=== PATIENT | male | born 1990 | race African-American/Black ===

== ENCOUNTER 2019-02-04 23:50 | Inpatient (IN) ==
[2019-02-05] MEDS ORDERED: 0.9 % Sodium Chloride 1,000 ML IVC ONE ×2 (01:54→05:47)
[2019-02-05] MEDS ORDERED: Isovue-370 500 ML BOTTLE IVP ONE (01:55)
--- NOTE | 2019-02-05 02:00 | Emergency Department Note ---
Disposition Clinical Impression: Left leg cellulitis Disposition: Admitted As Inpatient Condition: Good Time of Disposition: 05:50 Extremity Problem HPI - General Chief complaint: ED Skin/Abscess/Foreign Body Stated complaint: spider bite , infection Time Seen by Provider: 02/05/19 00:14 Source: patient, EMS Limitations: no limitations Nursing Notes Reviewed: Yes Vital Signs Reviewed: Yes - History of Present Illness HPI Narrative: 28-year-old male with reported h/o IVDU c/o worsening "spider bite" to his left lower extremity. He states that he has been in the ED 3 times. Most recent was earlier in the week, he describes compliance with his doxycycline. He presents tonight with worsening pain, and redness. He does describe some drainage and discharge. Pt reports some mild nausea. Patient does mention history of IV drug user, denies any recent use, SI, fevers, chills, weakness Pain Scale: 2 - Related Data Home Medications Medication Instructions Recorded Confirmed Buprenorphine HCl [Subutex] 8 mg SL DAILY 02/05/19 02/05/19 Bupropion HCl [Wellbutrin Xl] 300 mg PO HS 02/05/19 02/05/19 Doxycycline 100 mg PO BID 02/05/19 02/05/19 Ibuprofen [Motrin] 600 mg PO Q6HR PRN 02/05/19 02/05/19 Allergies Allergy/AdvReac Type Severity Reaction Status Date / Time Bee Pollen Allergy Anaphylaxis Verified 02/05/19 00:02 tramadol [From Ultram] Allergy Hives Verified 02/05/19 00:02 green peppers Allergy Hives Uncoded 02/05/19 00:02 All systems ED: reviewed and negative except as stated. Review of Systems: As Per HPI Constitutional: Reports: as per HPI Eyes: Denies: eye discharge ENT ED: Denies: throat pain Cardiovascular: Denies: chest pain, palpitations Respiratory: Denies: dyspnea Gastrointestinal: Reports: as per HPI. Denies: abdominal pain Musculoskeletal: Reports: as per HPI Integumentary: Reports: as per HPI. Denies: rash Neurological: Reports: as per HPI Psychiatric: Denies: depression, suicidal thoughts Endocrine: Denies: fatigue Hematological/Lymphatic: Denies: lymphadenopathy Past Medical History - Past Medical History Medical history: Reports: seizures Surgical history: Reports: non-contributory, other Psychiatric history: Reports: anxiety, depression, PTSD, prior suicide attempt, previous psychiatric hospitalization - Social History Smoking Status: Current every day smoker Smokeless Tobacco Status: Yes Alcohol use: Reports: occasionally Drug use: Reports: opiates, marijuana, IV Drug Use Physical Exam - General Limitations: no limitations General appearance: alert, in no apparent distress - Head Head exam: normocephalic - Eye Eye exam: Present: EOMI - ENT ENT exam: mucous membranes moist - Neck Neck exam: Present: full ROM - Chest Chest inspection: Present: symmetric chest wall rise - Respiratory Respiratory exam: Absent: respiratory distress - Cardiovascular Cardiovascular exam: Present: regular rate, normal rhythm - Abdominal Exam Abdominal exam: Present: soft, Non-Tender - Extremities Exam Extremities exam: Present: full ROM, normal capillary refill - Expanded Lower Extremity Exam Knee exam: Present: normal inspection, full ROM. Absent: tenderness Lower leg exam: Present: swelling (left ), erythema (left) Ankle exam: Present: swelling, erythema Foot/toe exam: Present: swelling Neurovascular/Tendon exam: Absent: pulse deficit, sensory deficit Gait: observed and normal - Back Exam Back exam: Present: full ROM - Neurological Exam Neurological exam: Present: alert - Psychiatric Psychiatric exam: Present: normal affect, normal mood - Skin Skin exam: Present: warm, dry, intact, normal color. Absent: rash, cyanosis, diaphoresis Course Course Narrative: 28-year-old male complains of worsening "spider bite" to his left lower extremity. He states that he has been in the ED 3 times. Did review her EMR, he did have a previous visit. Is currently taking doxycycline. He presents tonight with worsening pain, and redness. Patient is known to be an IV drug user, and he denies any recent issues. Examination noted erythema along the medial and posterior aspect of his left lower extremity. No involvement of the knee. There is some open areas approximately 1 cm, active draining. No fluctuance mild induration. Good distal pulses. Vitals within normal limits. Plan for admission for failing outpatient antibiotics. We will plan for cultures, blood work, fluids, antibiotics. Discussed with attending Dr. Cat who also had face time with patient and agreed with workup and disposition. - Reevaluation(s) Reevaluation #1: PT discussed with Dr. Cat who also had facetime with patient and agreed with admission. I have ordered fluids, blood cultures, wound culture, and baseline lab work. We will anticipate a CT scan of his left lower extremity, pending his renal function. I anticipate patient will need to be admitted, for failing outpatient therapy. Time: 01:59 Reevaluation #2: Patient discussed with and accepted by hospitalist Dr. Hawkins Time: 05:49 Vital Signs Temperature 97.7 F 02/05/19 00:03 Pulse Rate 87 02/05/19 00:03 Respiratory Rate 20 02/05/19 00:03 Blood Pressure 147/83 02/05/19 00:03 O2 Sat by Pulse Oximetry 97 02/05/19 00:03 Temperature 97.7 F 02/05/19 00:03 Pulse Rate 68 02/05/19 06:17 Respiratory Rate 12 02/05/19 06:17 Blood Pressure 121/79 02/05/19 06:17 O2 Sat by Pulse Oximetry 100 02/05/19 06:17 Oxygen Delivery Oxygen Delivery Room Air Extremity Problem, Nontraumati - MDM Narrative Medical decision making narrative: Please note, patient was seen during EMR downtime. I had seen patient prior to this started EMR downtime injuring. Please see paper charting for additional details. Patient is a 28-year-old male with known history of IV drug use on Suboxone therapy. . He is recently diagnosed with cellulitis to his left lower extremity.Most recently he was seen in this department approximately 4 days ago. He was seen, there was a bedside ultrasound that showed no evidence of any drainable abscess. Apparently he was also seen at urgent care and received a prescription for doxycycline. He had recommendations to continue his doxycycline. He presented today with worsening. He describes compliance with his doxycycline, and has been taking it for at least 4 days. His vitals here are within normal limits. He did not meet surge criteria. He does not look toxic. Workup tonight shows no elevation of white blood cell count. Slight elevation in CRP and ESR. No elevation of lactic acid. CT shows cellulitis with no evidence of abscess, or cellulitis, necrotizing fasciitis, or myositis. His pain was managed here with Toradol and acetaminophen. He was given fluids and IV antibiotics here. Patient was discussed with attending Dr. Cat who agreed with admission and also placed on patient. Patient was discussed with and accepted by the hospitalist staff. Laboratory Tests 02/05/19 02/05/19 01:54 01:56 WBC 9.9 RBC 4.56 Hgb 14.1 Hct 42.5 MCV 93.2 MCH 30.9 MCHC 33.2 RDW 13.0 Plt Count 370 MPV 9.7 Immature Gran % 0.3 Seg Neutrophils % 71.7 Lymphocytes % 16.4 Monocytes % 7.6 Eosinophils % 3.7 Basophils % 0.3 Neutrophils # 7.1 Lymphocytes # 1.6 Monocytes # 0.8 Eosinophils # 0.4 Basophils # 0.0 Immature Plt Fraction 3.0 ESR 60 H Creatine kinase 151 CRP 63.39 ESR 60 Sodium 136. Potassium 3.6. Chloride 100. Glucose 91 BUN 20 Lactic acid 0.[address] 02/05/19 04:25 IMPRESSION: 1. Fluid throughout the subcutaneous tissues of the left leg likely due to cellulitis given the clinical history. Edema could appear similar. 2. No findings of osteomyelitis, necrotizing fasciitis, abscess, or myositis. D/ / Manpreet Childs MD / Manpreet Childs MD Interpreting Provider: Manpreet Childs MD - Lab Data Lab results reviewed: Yes I reviewed the patient's lab results. Result diagrams: 02/05/19 01:54 Lab Results 02/05/19 02/05/19 Range/Units 01:54 01:56 WBC 9.9 (4.3-11.1) K/mcL RBC 4.56 (4.19-5.50) M/mcL Hgb 14.1 (12.9-16.9) g/dL Hct 42.5 (37.5-50.1) % MCV 93.2 (83.0-100.0) fL MCH 30.9 (28.0-33.3) pg MCHC 33.2 (31.6-35.5) g/dL RDW 13.0 (11.5-14.5) % Plt Count 370 (140-400) K/mcL MPV 9.7 (9.4-12.4) fL Immature Gran % 0.3 (0-4) % Seg Neutrophils % 71.7 % Lymphocytes % 16.4 % Monocytes % 7.6 % Eosinophils % 3.7 % Basophils % 0.3 % Neutrophils # 7.1 (1.6-8.9) K/mcL Lymphocytes # 1.6 (0.6-4.6) K/mcL Monocytes # 0.8 (0.0-1.3) K/mcL Eosinophils # 0.4 (0.0-0.6) K/mcL Basophils # 0.0 (0.0-0.2) K/mcL Immature Plt Fraction 3.0 (1.1-6.1) % ESR 60 H (0-10) mm/hr - Radiology Data Radiology results reviewed: Yes I reviewed the patient's radiology results.
[2019-02-05] MEDS ORDERED: Ketorolac 15 MG/ML VIAL ONE (02:31)
[2019-02-05] MEDS ORDERED: Vancomycin 1,000 MG VIAL ONE ×2 (03:56→04:02)
[2019-02-05] MEDS ORDERED: 0.9 % Sodium Chloride 250 ML ONE ×2 (03:57→04:01)
[2019-02-05] MEDS ORDERED: Ketorolac 15 MG/ML VIAL IVP ONE (05:47)
[2019-02-05] MEDS ORDERED: Piperacillin/Tazobactam 3.375 GM VIAL ONE (05:54)
[2019-02-05] MEDS ORDERED: 0.9 % Sodium Chloride Mini Bag 100 ML ONE (05:56)
[2019-02-05 06:09] LABS: Basophils % 0.3 %; Eosinophils # 0.4 K/mcL (0.0-0.6); Eosinophils % 3.7 %; Hematocrit 42.5 % (37.5-50.1); Hemoglobin 14.1 g/dL (12.9-16.9); Immature Granulocytes % 0.3 % (0-4); Lymphocytes # 1.6 K/mcL (0.6-4.6); Lymphocytes % 16.4 %; Mean Corpuscular HGB Conc 33.2 g/dL (31.6-35.5); Mean Corpuscular Hemoglobin 30.9 pg (28.0-33.3); Mean Corpuscular Volume 93.2 fL (83.0-100.0); Mean Platelet Volume 9.7 fL (9.4-12.4); Monocytes # 0.8 K/mcL (0.0-1.3); Monocytes % 7.6 %; Neutrophils # 7.1 K/mcL (1.6-8.9); Platelet Count 370 K/mcL (140-400); Red Blood Count 4.56 M/mcL (4.19-5.50); Segmented Neutrophils % 71.7 %; White Blood Count 9.9 K/mcL (4.3-11.1)
--- NOTE | 2019-02-05 06:25 | Emergency Department Note ---
Disposition Clinical Impression: Left leg cellulitis Disposition: Admitted As Inpatient Condition: Good Time of Disposition: 05:50 General Adult HPI - General Chief complaint: ED Skin/Abscess/Foreign Body Stated complaint: spider bite , infection Time Seen by Provider: 02/05/19 00:14 Source: patient, EMS Limitations: no limitations Nursing Notes Reviewed: Yes Vital Signs Reviewed: Yes - History of Present Illness Pain Scale: 8 - Related Data Previous Rx's Medication Instructions Recorded Sulfamethoxazole/Trimeth DS 1 each PO BID #20 tablet 11/16/17 [Bactrim DS] Naloxone [Narcan] 4 mg NS AD #2 sprays 01/20/19 Allergies Allergy/AdvReac Type Severity Reaction Status Date / Time Bee Pollen Allergy Anaphylaxis Verified 02/05/19 00:02 tramadol [From Ultram] Allergy Hives Verified 02/05/19 00:02 green peppers Allergy Hives Uncoded 02/05/19 00:02 Past Medical History - Past Medical History Medical history: Reports: seizures Surgical history: Reports: non-contributory, other Psychiatric history: Reports: anxiety, depression, PTSD, prior suicide attempt, previous psychiatric hospitalization - Social History Smoking Status: Current every day smoker Smokeless Tobacco Status: Yes Alcohol use: Reports: occasionally Drug use: Reports: opiates, marijuana, IV Drug Use Physical Exam - General Limitations: no limitations General appearance: alert Course Vital Signs Temperature 97.7 F 02/05/19 00:03 Pulse Rate 87 02/05/19 00:03 Respiratory Rate 20 02/05/19 00:03 Blood Pressure 147/83 02/05/19 00:03 O2 Sat by Pulse Oximetry 97 02/05/19 00:03 Temperature 97.7 F 02/05/19 00:03 Pulse Rate 68 02/05/19 06:17 Respiratory Rate 12 02/05/19 06:17 Blood Pressure 121/79 02/05/19 06:17 O2 Sat by Pulse Oximetry 100 02/05/19 06:17 Oxygen Delivery Oxygen Delivery Room Air Medical Decision Making - Lab Data Lab results reviewed: Yes I reviewed the patient's lab results. Result diagrams: 02/05/19 01:54 Lab Results 02/05/19 02/05/19 Range/Units 01:54 01:56 WBC 9.9 (4.3-11.1) K/mcL RBC 4.56 (4.19-5.50) M/mcL Hgb 14.1 (12.9-16.9) g/dL Hct 42.5 (37.5-50.1) % MCV 93.2 (83.0-100.0) fL MCH 30.9 (28.0-33.3) pg MCHC 33.2 (31.6-35.5) g/dL RDW 13.0 (11.5-14.5) % Plt Count 370 (140-400) K/mcL MPV 9.7 (9.4-12.4) fL Immature Gran % 0.3 (0-4) % Seg Neutrophils % 71.7 % Lymphocytes % 16.4 % Monocytes % 7.6 % Eosinophils % 3.7 % Basophils % 0.3 % Neutrophils # 7.1 (1.6-8.9) K/mcL Lymphocytes # 1.6 (0.6-4.6) K/mcL Monocytes # 0.8 (0.0-1.3) K/mcL Eosinophils # 0.4 (0.0-0.6) K/mcL Basophils # 0.0 (0.0-0.2) K/mcL Immature Plt Fraction 3.0 (1.1-6.1) % ESR 60 H (0-10) mm/hr - Radiology Data Radiology results reviewed: Yes I reviewed the patient's radiology results. Lower Extremity CT 02/05/19 04:25 IMPRESSION: 1. Fluid throughout the subcutaneous tissues of the left leg likely due to cellulitis given the clinical history. Edema could appear similar. 2. No findings of osteomyelitis, necrotizing fasciitis, abscess, or myositis. D/ / Manpreet Childs MD / Manpreet Childs MD Interpreting Provider: Manpreet Childs MD Critical Care Time Critical Care Time: No Attestation Statement - Attestation Attestation: I, Sukhdeep Cat MD, personally evaluated this patient and discussed their management with the midlevel provicer, PAC/WEB SIZER. I reviewed the midlevel provider's note and agree with the documented findings, medical decision making, and plan of care. 28-year-old male presented to the emergency department with a complaint of pain and swelling and redness of the left lower leg. He states it started about a week ago with a pimple which he squeezed and then it got infected. He has been taking antibiotics for the last several days but states it seems to be getting steadily worse. No fever. On examination patient is a well-developed well-nourished male in no acute distress. He is alert and oriented 3. There is no diaphoresis. Breath sounds are clear and equal bilaterally. Heart regular rate and rhythm. Abdomen soft and nontender with normal bowel sounds. There is diffuse swelling and erythema and tenderness and induration of the left lower leg. There is a small open wound on the posterior medial aspect of the mid left lower leg with a small amount of purulent drainage. Neurovascular function intact distally. Labs reviewed. CT of the left lower extremity shows cellulitis. The hospitalist, Dr. Hawkins, was consulted and accepted admission of the patient.
[2019-02-05] MEDS ORDERED: Ibuprofen 600 MG TABLET PO PRN (07:15)
[2019-02-05] MEDS ORDERED: Naloxone 0.4 MG/ML INJ IVP PRN (07:18)
[2019-02-05] MEDS ORDERED: MOM Conc 10 ML UD.LIQ PO PRN (07:23)
[2019-02-05] MEDS ORDERED: Ondansetron ODT 4 MG TAB.RAPDIS SL PRN (07:23)
[2019-02-05] MEDS ORDERED: Mag Hydrox/Al Hydrox/Simeth 30 ML UDC PO PRN (07:23)
[2019-02-05] MEDS ORDERED: Acetaminophen 325 MG TABLET PO PRN (07:23)
[2019-02-05 07:58] LABS: BUN/Creatinine Ratio 24 (6-26); Blood Urea Nitrogen 19 mg/dL (6-20); Carbon Dioxide 30 mEq/L (23-29); Chloride 103 mEq/L (98-107); Glucose 72 mg/dL (70-105); Osmolality,Calculated 289 (280-300); Potassium 3.3 mEq/L (3.5-5.1); Sodium 139 mEq/L (136-145); eGFR For African Americans > 60 (> 60); eGFR For Non-African Americans > 60 (> 60)
--- NOTE | 2019-02-05 08:58 | Internal Med History&Physical ---
Date of Encounter: 02/05/19 Time of Encounter: 08:47 Internal Medicine - H&P: HPI Chief complaint: "spider bite" Admitted From: Emergency Dept Plans for Post Hospital Care: Home History of present illness: Mr. Salmon is a 28 year old male with hx of opiate abuse presented to ED with complaints of pain, redness and swelling of L leg. Found to have cellulitis and placed in observation. Mr Salmon stated that last weekend (Thursday) he not an area of redness and which he attributed to a spider bite. It progressed and he was seen in ED on Thursday and started on PO Doxycycline. Despite this the area continued to worsen and become more red and swollen. No fever or chills though feels malaise. Some nausea. Seen in ED and CT shows cellulitis. Currently his only complaint is some pain in the area and hunger. Past Med Surg Social Fam HX - Past Medical History Medical history: seizures Additional medical history: IVDU Psychiatric history: anxiety, depression, PTSD, prior suicide attempt, previous psychiatric hospitalization - Past Surgical History Surgical History: non-contributory, other Additional surgical history: gangrene left foot - Social History Smoking Status: Current every day smoker Packs per day: 1 Smokeless Tobacco Status: Yes Alcohol use: occasionally Drug use: opiates, marijuana, IV Drug Use - Family History Mother Hx Family Cardiac Disorders: Yes (HTN) Hx Family Endocrine Disorder: Yes (DM) Internal Medicine - H&P: Meds Buprenorphine HCl/Naloxone HCl [Buprenorphin-Naloxon 8-2 mg Sl] 2 tab PO DAILY 02/05/19 [History] Bupropion HCl [Wellbutrin Xl] 300 mg PO QAM 02/05/19 [History] Buspirone HCl [Buspar] 10 mg PO HS 02/05/19 [History] Doxycycline Hyclate [Vibramycin] 100 mg PO BID 02/05/19 [History] Ibuprofen [Motrin] 600 mg PO TID PRN 02/05/19 [History] Nicotine Patch [Nicoderm] 21 mg TD DAILY 02/05/19 [History] 3 Allergy/AdvReac Type Severity Reaction Status Date / Time Bee Pollen Allergy Anaphylaxis Verified 02/05/19 14:27 tramadol [From Ultram] Allergy Hives Verified 02/05/19 14:27 green peppers Allergy Hives Uncoded 02/05/19 14:27 All Systems PM: A 10-system review of systems was performed and is negative for pertinent findings except as documented above in the HPI. - Constitutional Constitutional: malaise, no chills, no fever(s) - EENT Eyes: no diplopia, no loss of vision Ears: no decreased hearing Nose, mouth and throat: dry mouth, no sinus pain - Cardiovascular Cardiovascular ROS IM: no chest pain, no dyspnea, no dyspnea on exertion, no palpitations - Respiratory Respiratory: no cough, no hemoptysis, no dyspnea on exertion - Gastrointestinal Gastrointestinal: nausea, no abdominal pain, no diarrhea, no vomiting - Genitourinary Genitourinary ROS male: no dysuria, no urinary frequency - Musculoskeletal Musculoskeletal ROS IM: no arthralgias, no tingling - Integumentary Integumentary IM: erythema, sores, no jaundice - Neurological Neurological ROS: convulsions, no confusion, no tingling - Psychiatric Psychiatric: no suicidal ideation - Endocrine Endocrine IM: no excessive sweating - Hematologic/Lymphatic Hematologic/Lymphatic: no easy bleeding - Allergic/Immunologic Allergic/Immunologic: no itchy eyes - Constitutional Vitals: Temp Pulse Resp BP Pulse Ox 97.3 F L 62 16 145/69 100 02/05/19 07:36 02/05/19 07:36 02/05/19 07:36 02/05/19 07:36 02/05/19 07:36 General appearance: Present: A&O X 3, answers questions appropriately Exam: See below - Head Head exam: Present: atraumatic, normocephalic - Eye Eye exam: Present: EOMI, conjuntiva pink - ENT ENT exam: Present: mucous membranes dry - Neck Neck exam general surgery: Present: supple. Absent: nuchal rigidity - Respiratory Respiratory exam: Present: CTAB. Absent: rales, rhonchi, wheezes - Cardiovascular Cardiovascular exam: Present: RRR. Absent: systolic murmur, tachycardia - GI/Abdominal GI/Abdominal exam: Present: soft. Absent: tenderness - Extremities Exam Extremities exam: Present: warm Additional comments: LLE - erythema and swelling noted below knee. Medial part of calf with open area with induration. Small areas near ankle as well. Pulses palpable. - Neurological Exam Neurological exam: Present: alert, oriented X3, no focal deficits - Psychiatric Psychiatric exam: Present: flat affect - Skin Skin exam: Present: dry, erythema, warm Internal Med - H&P Results - Labs CBC & Chem 7: 02/05/19 01:54 02/05/19 07:24 Labs: Short CBC 02/05/19 Range/Units 01:54 WBC 9.9 (4.3-11.1) K/mcL Hgb 14.1 (12.9-16.9) g/dL Hct 42.5 (37.5-50.1) % Plt Count 370 (140-400) K/mcL Neutrophils # 7.1 (1.6-8.9) K/mcL BMP 02/05/19 07:24 Sodium 139 Potassium 3.3 L Chloride 103 Carbon Dioxide 30 H BUN 19 Creatinine 0.79 Glucose 72 Calcium 9.0 - Impressions ITS Impressions Lower Extremity CT 02/05/19 04:25 IMPRESSION: 1. Fluid throughout the subcutaneous tissues of the left leg likely due to cellulitis given the clinical history. Edema could appear similar. 2. No findings of osteomyelitis, necrotizing fasciitis, abscess, or myositis. D/ / Manpreet Childs MD / Manpreet Childs MD Interpreting Provider: Manpreet Childs MD - Assessment and Plan (1) Left leg cellulitis Current Visit: Yes Status: Acute Assessment and plan: Pt presented to ED with LLE cellulitis - recently on PO doxy as outpatient with continued symptoms. Admit to med surg. IV abx ordered - Zosyn and Vanc Blood cx pending CT shows only cellulitis. Monitor for worsening symptoms or evidence of fluid collection. (2) Polysubstance (including opioids) dependence w/o physiol dependence Current Visit: No Status: Chronic Assessment and plan: Continue home Subutex (3) Depression Current Visit: No Status: Chronic Assessment and plan: Continue home meds Qualifiers: Depression Type: unspecified Qualified Code(s): F32.9 - Major depressive disorder, single episode, unspecified (4) Tobacco abuse Current Visit: Yes Status: Chronic Assessment and plan: cessation counselling - Time Spent With Patient Total time spent is greater than 50% in coordination of care (as documented) at patient's floor/unit and/or counseling patient:
[2019-02-05] MEDS ORDERED: *HR* Buprenorphine HCl 8 MG TAB.SUBL SL SCH (09:00)
[2019-02-05] MEDS: Piperacillin/Tazobactam 3.375 GM in 0.9 % Sodium Chloride Mini Bag 100 ML IVPB SCH ×2 (14:37→21:37)
[2019-02-05] MEDS: Nicotine 21 MG PATCH.TD24 TD SCH (15:18)
[2019-02-05] MEDS: hydrOXYzine pamoate 25 MG CAPSULE PO PRN (15:42)
[2019-02-05] MEDS: BuPROPion XL (24 HR) 150 MG TABLET PO SCH (21:37)
--- NOTE | 2019-02-06 01:39 | Event Note ---
Date of Encounter: 02/05/19 Time of Encounter: 21:50 Alerted by pts. nurse TORY Paige that the pt. was admitted for two spider bites on LLE. Hx of IV drug abuse. Patient is currently on suboxone. No urine tox screen done previously, so stat urine tox screen ordered. Patient not cooperating w/providing urine sample. Patient states he takes his suboxone BID. Called Pharmacy to verify, however we are unable to verify at this time. According to Pharmacy, patient has Rx that has not been picked up so dosing and frequency information are not available to view at this time. Suboxone will be once daily for now until we can verify. Patient reported to nurse that the Tylenol was not relieving his pain and he wanted stronger pain medications. Nurse instructed patient that he cannot have opioids while on suboxone. Patient stated he won't take the suboxone and instead wants pain medications. Patient told the nurse if he doesn't get something stronger he's leaving AMA. Nurse reported the patient fell asleep and she would alert me when he woke up so I could come see the pt. Alerted at 01:14 that the pt. was awake and had pulled his IV out. Went to see the pt. who was pacing in the room and agitated. I introduced myself and asked why he had pulled out his IV. Patient became more agitated and stated that it came out when he used the restroom. I asked the pt. why he wanted stronger pain medications when he was taking suboxone. I asked the pt. if anyone had explained to him that opioids are not to be taken while taking suboxone. The pt. became very agitated at this point and stated he would leave. I informed the patient that no one was holding him here and he was free to leave AMA but this was against my advice d/t his current condition and need for broad- spectrum abx. Patient stated he wanted another CODING AND REIMBURSEMENT SPECIALIST to take care of him. I informed the pt. that I was the only CODING AND REIMBURSEMENT SPECIALIST on nights and I was covering all units. Patient stated he did not want another IV. I informed the patient he would not be receiving any opioid pain medications since he was on suboxone. Patient stated he was leaving. Nurse instructed to print out AMA paperwork for the pt. to sign. Charge nurse instructed to call security if patient's agitation continued. Patient informed nurse he did not have a ride until morning and was now staying. Nurse instructed to continue monitoring the patient very closely and alert me immediately of any adverse or behavioral changes.
[2019-02-06 01:55] LABS: Hematocrit 38.5 % (37.5-50.1); Hemoglobin 12.6 g/dL (12.9-16.9); Mean Corpuscular HGB Conc 32.7 g/dL (31.6-35.5); Mean Corpuscular Hemoglobin 30.4 pg (28.0-33.3); Mean Platelet Volume 9.7 fL (9.4-12.4); Platelet Count 320 K/mcL (140-400); Red Blood Count 4.14 M/mcL (4.19-5.50); Red Cell Distribution Width 12.9 % (11.5-14.5); White Blood Count 6.3 K/mcL (4.3-11.1)
[2019-02-06 02:40] LABS: BUN/Creatinine Ratio 19 (6-26); Blood Urea Nitrogen 15 mg/dL (6-20); Calcium 8.7 mg/dL (8.6-10.3); Carbon Dioxide 28 mEq/L (23-29); Chloride 107 mEq/L (98-107); Glucose 90 mg/dL (70-105); Magnesium 1.8 mg/dL (1.6-2.6); Osmolality,Calculated 286 (280-300); Potassium 4.2 mEq/L (3.5-5.1); Sodium 138 mEq/L (136-145); eGFR For African Americans > 60 (> 60); eGFR For Non-African Americans > 60 (> 60)
[2019-02-06 04:09] LABS: Acinetobacter baumannii by PCR Not Detected (Not Detect); Candida albicans by PCR Not Detected (Not Detect); Candida glabrata by PCR Not Detected (Not Detect); Candida krusei by PCR Not Detected (Not Detect); Candida parapsilosis by PCR Not Detected (Not Detect); Candida tropicalis by PCR Not Detected (Not Detect); Enterobacter cloacae Cmplx PCR Not Detected (Not Detect); Enterobacteriaceae by PCR Not Detected (Not Detect); Enterococcus by PCR Not Detected (Not Detect); Escherichia coli by PCR Not Detected (Not Detect); Klebsiella oxytoca by PCR Not Detected (Not Detect); Klebsiella pneumoniae by PCR Not Detected (Not Detect); Proteus by PCR Not Detected (Not Detect); Pseudomonas aeruginosa by PCR Not Detected (Not Detect); Serratia marcescens by PCR Not Detected (Not Detect); Staphylococcus aureus by PCR Not Detected (Not Detect); Staphylococcus by PCR DETECTED (Not Detect); Streptococcus agalactiae(B)PCR Not Detected (Not Detect); Streptococcus by PCR Not Detected (Not Detect); Streptococcus pneumoniae PCR Not Detected (Not Detect); Streptococcus pyogenes (A) PCR Not Detected (Not Detect); blaKPC Carbapenem-Resist Gene Not Detected (Not Detect); mecA Methicillin-Resist Gene Not Detected (Not Detect); vanA/B Vancomycin-Resist Genes Not Detected (Not Detect)
[2019-02-06] MEDS: Piperacillin/Tazobactam 3.375 GM in 0.9 % Sodium Chloride Mini Bag 100 ML IVPB SCH ×3 (05:29→22:08)
[2019-02-06] MEDS ORDERED: *HR* Enoxaparin 30 MG/0.3 ML SYRINGE SQ SCH (06:00)
[2019-02-06 06:01] LABS: Amphetamine Screen,Urine Negative ng/mL (Cutoff=1000); Barbiturate Screen,Urine Negative ng/mL (Cutoff=200)
[2019-02-06 06:02] LABS: Benzodiazepines Screen,Urine Negative ng/mL (Cutoff=300); Cannabinoid Screen,Urine Positive ng/mL (Cutoff = 50); Cocaine Screen,Urine Negative ng/mL (Cutoff= 300); Opiate Screen,Urine Negative ng/mL (Cutoff=300)
[2019-02-06 06:03] LABS: Phencyclidine Screen,Urine Negative ng/mL (Cutoff=25)
[2019-02-06] MEDS ORDERED: *HR* Buprenorphine HCl 8 MG TAB.SUBL SL SCH (06:15)
[2019-02-06] MEDS: Nicotine 21 MG PATCH.TD24 TD SCH (08:29)
[2019-02-06] MEDS: Ketorolac 30 MG/ML VIAL IVP PRN ×2 (08:36→14:10)
[2019-02-06] MEDS ORDERED: NALOXONE PO SCH (09:00)
[2019-02-06] MEDS ORDERED: BUPRENORPHINE HCL PO SCH (09:00)
[2019-02-06] MEDS ORDERED: *HR* LORazepam 1 MG TABLET PO PRN (12:29)
--- NOTE | 2019-02-06 12:36 | Internal Med Progress Note ---
Hospitalist Progress Note - Encounter Date of Encounter: 02/06/19 Time of Encounter: 12:25 - Subjective Interval History: Mr Salmon is currently hospitalized for LLE cellulitis. He remains moderate to high risk due to potential for worsening clinical status. Mr Salmon is very upset at this time. He wants to go outside or down to cafeteria with his family. He feels he has the right to leave the floor if he wants and he would even let the IV come out and be replaced. He is very distressed about the overall situation. He feels that if he needs pain meds he should have the Suboxone held and other meds given. He said he is on different psych meds than we have ordered and was able to list them for me. He feels very anxious and his PTSD is becoming a problem. No fever or chills. Leg is improving overall. We spoke for a while and I explained out reasoning for not going off the floor. I agree that he could have his IV out and go with his family to the lounge around the corner. He cannot be doing this repetitively. If there is any suggestion of illicit substance use or he leaves the floor it will be a call to security. - Exam Vitals: Temp Pulse Resp BP Pulse Ox 98.4 F 77 14 126/89 95 02/06/19 11:41 02/06/19 11:41 02/06/19 11:41 02/06/19 11:41 02/06/19 11:41 Exam: General: Alert and oriented. Comfortable at this time. Skin: Normal color, no rash, H: Normocephalic. EENT: EOMI, Mucus membranes moist. . Cardiovascular: Normal S1 & S2, no murmurs Pulse regular. Lungs: Normal breath sounds, no wheezes or crackles. Abdomen: Soft, non-tender,Normal bowel sounds. Extremities: No deformity, no edema no joint swelling or clubbing. Area on medial L calf is less red. Still some induration and discomfort. Neurological: Normal cognition and motor skills. Pulses: radial pulses normal +2. Rest of the physical exam is non contributory - Assessment and Plan (1) Left leg cellulitis Current Visit: Yes Status: Acute Assessment and Plan: Pt presented to ED with LLE cellulitis - recently on PO doxy as outpatient with continued symptoms. Has had some improvement with IV abx - less red and painful. Will continue IV meds overnight and reassess tomorrow - I am concerned he may still develop an abscess there If stable anticipate d/c tomorrow. (2) Polysubstance (including opioids) dependence w/o physiol dependence Current Visit: No Status: Chronic Assessment and Plan: Subutex (3) Depression Current Visit: No Status: Chronic Assessment and Plan: Continue home meds (4) Tobacco abuse Current Visit: Yes Status: Chronic Assessment and Plan: cessation counselling - Time Spent with Patient Total time spent is greater than 50% in coordination of care (as documented) at patient's floor/unit and/or counseling patient: Internal Medicine: Result - Labs CBC & Chem 7: 02/06/19 01:43 02/06/19 01:43 Labs: Short CBC 02/06/19 Range/Units 01:43 WBC 6.3 (4.3-11.1) K/mcL Hgb 12.6 L D (12.9-16.9) g/dL Hct 38.5 (37.5-50.1) % Plt Count 320 (140-400) K/mcL BMP 02/06/19 01:43 Sodium 138 Potassium 4.2 D Chloride 107 Carbon Dioxide 28 BUN 15 Creatinine 0.80 Glucose 90 Calcium 8.7 Consult Discharge Plan - Plan Referrals: NONE,PCP [Primary Care Provider] - (3) Depression Qualifiers: Depression Type: unspecified Qualified Code(s): F32.9 - Major depressive disorder, single episode, unspecified
[2019-02-06] MEDS ORDERED: Mirtazapine 15 MG TABLET PO SCH (21:00)
[2019-02-06] MEDS: BuPROPion XL (24 HR) 150 MG TABLET PO SCH (22:07)
[2019-02-06] MEDS: OLANZapine 5 MG TAB.RAPDIS PO SCH (22:08)
[2019-02-07] MEDS: Piperacillin/Tazobactam 3.375 GM in 0.9 % Sodium Chloride Mini Bag 100 ML IVPB SCH ×3 (05:40→22:24)
[2019-02-07] MEDS: *HR* Enoxaparin 40 MG/0.4 ML SYRINGE SQ SCH (05:40)
[2019-02-07] MEDS: Nicotine 21 MG PATCH.TD24 TD SCH (08:55)
[2019-02-07] MEDS: OLANZapine 5 MG TAB.RAPDIS PO SCH (08:55)
[2019-02-07 09:49] LABS: Hematocrit 37.1 % (37.5-50.1); Hemoglobin 12.3 g/dL (12.9-16.9); Mean Corpuscular HGB Conc 33.2 g/dL (31.6-35.5); Mean Corpuscular Hemoglobin 30.8 pg (28.0-33.3); Mean Platelet Volume 9.4 fL (9.4-12.4); Platelet Count 320 K/mcL (140-400); Red Blood Count 3.99 M/mcL (4.19-5.50); Red Cell Distribution Width 12.7 % (11.5-14.5)
--- NOTE | 2019-02-07 10:04 | Discharge Summary ---
Orders not resulted at time of discharge: Pending orders 02/05/19 02:46 Culture,Blood [BC] Stat 02/05/19 04:05 Culture,Wound,with Gram Stain [RM] Stat 02/06/19 08:25 Culture,Blood [BC] Routine Date of Encounter: 02/07/19 Time of Encounter: 10:04 Hospital course: Mr. Salmon is a 28 year old male - Time Spent with Patient Total time spent providing and/or coordinating discharge services: - Discharge Medications Prescriptions: No Action Bupropion HCl [Wellbutrin Xl] 300 mg PO QAM Ibuprofen [Motrin] 600 mg PO TID PRN PRN Reason: Pain Buspirone HCl [Buspar] 10 mg PO HS Doxycycline Hyclate [Vibramycin] 100 mg PO BID Nicotine Patch [Nicoderm] 21 mg TD DAILY Buprenorphine HCl/Naloxone HCl [Buprenorphin-Naloxon 8-2 mg Sl] 2 tab PO DAILY Home Medications: Buprenorphine HCl/Naloxone HCl [Buprenorphin-Naloxon 8-2 mg Sl] 2 tab PO DAILY 02/05/19 [History] Bupropion HCl [Wellbutrin Xl] 300 mg PO QAM 02/05/19 [History] Buspirone HCl [Buspar] 10 mg PO HS 02/05/19 [History] Doxycycline Hyclate [Vibramycin] 100 mg PO BID 02/05/19 [History] Ibuprofen [Motrin] 600 mg PO TID PRN 02/05/19 [History] Nicotine Patch [Nicoderm] 21 mg TD DAILY 02/05/19 [History] Allergies/Adverse Reactions: Allergy/AdvReac Type Severity Reaction Status Date / Time Bee Pollen Allergy Anaphylaxis Verified 02/05/19 14:27 tramadol [From Ultram] Allergy Hives Verified 02/05/19 14:27 green peppers Allergy Hives Uncoded 02/05/19 14:27 Date of admission: 02/05/19 05:58 Primary care physician: PCP NONE Consults: 02/05/19 07:03 Consult to Nutrition [CONS] Routine Comment: Consulting Provider: NUTRITION Reason for Dietary Consult: MST Score - Constitutional Vitals: Temp Pulse Resp BP Pulse Ox 97.7 F 68 14 106/64 97 02/07/19 04:02 02/07/19 04:02 02/07/19 04:02 02/07/19 04:02 02/07/19 04:02 General appearance: Present: A&O X 3, answers questions appropriately - Patient Status Condition: Good - Discharge Instructions Follow Up With: NONE,PCP [Primary Care Provider] -
[2019-02-07 10:18] LABS: BUN/Creatinine Ratio 17 (6-26); Blood Urea Nitrogen 14 mg/dL (6-20); Calcium 8.9 mg/dL (8.6-10.3); Carbon Dioxide 32 mEq/L (23-29); Chloride 106 mEq/L (98-107); Glucose 105 mg/dL (70-105); Osmolality,Calculated 293 (280-300); Potassium 3.9 mEq/L (3.5-5.1); Sodium 141 mEq/L (136-145); eGFR For African Americans > 60 (> 60); eGFR For Non-African Americans > 60 (> 60)
[2019-02-07] MEDS ORDERED: Aminoglycoside Consult 1 EACH MC ONE (11:15)
[2019-02-07] MEDS: *HR* Buprenorphine HCl 8 MG TAB.SUBL SL SCH ×2 (11:26→20:19)
[2019-02-07] MEDS ORDERED: Ketorolac 30 MG/ML VIAL IVP PRN (11:32)
--- NOTE | 2019-02-07 12:42 | Internal Med Progress Note ---
<Gaudencio Villagomez S - Last Filed: 02/07/19 12:38> Hospitalist Progress Note - Encounter Date of Encounter: 02/07/19 Time of Encounter: 12:39 - Subjective Interval History: Mr. Salmon is 28-year-old male with history of IV drug use currently on Suboxone, as well as significant psych history who was admitted to her service for IV antibiotics after failed outpatient by mouth antibiotics for lower extremity ulcers and cellulitis. He reports no complaints at this time, reports no problems overnight. He reports that the pain in his leg is significantly better. Denies hallucinations, suicidal ideation, chest pain, shortness of breath, dizziness, headache, blurry vision, double vision, trouble speaking or swallowing, nausea, vomiting, diarrhea, constipation, black stool, bloody stool, numbness/weakness/tingling anywhere. - Exam Vitals: Temp Pulse Resp BP Pulse Ox 97.6 F 70 16 114/57 98 02/07/19 10:45 02/07/19 10:45 02/07/19 10:45 02/07/19 10:45 02/07/19 10:45 Exam: Gen: Awake but somnolent, no acute distress, well-nourished, Head: Normocephalic, atraumatic Eyes: EOMI, no scleral icterus ENT: Mucous membranes moist dry, CV: S1-S2 present, regular at a rate of approximately 60, no murmurs rubs or gallops Pulm: CTAB, not tachypneic, no respiratory distress, no increased work of breathing Abd: Soft, nontender to palpation, nondistended, no rebound or guarding. EXT: Grossly intact motor strength in all 4 extremities, no lower extremity edema, no distal cyanosis or pallor, posteromedial L lower extremity has some induration surrounding a small circular ulcerating wound. Skin: Warm, dry, intact. Numerous small round scars on the legs and arms, groupings of small linear scars present on L forearm Neuro: Cranial nerves II-XII grossly intact, no focal nurologic deficits Psych: normal mood and affect, Answers questions with intact judgement, appropriate insight, and linear thought Wound: approx 8mm, uniform, round ulceration without purulent drainage. some serous-appearing fluid present at base of conical-shaped depression. basee of pink granulation tissue. no eschar or undermining present. - Assessment and Plan (1) Left leg cellulitis Current Visit: Yes Status: Acute Assessment and Plan: L LE wound improving Pt w/o fevers, chills, any other systemic signs Blood cultures show non-staph gram(+) cocci * Continue IV abx overnight * D/C tomorrow pending culture sensitivities * Toradol for pain management (2) Polysubstance (including opioids) dependence w/o physiol dependence Current Visit: No Status: Chronic Assessment and Plan: Patient is taking Suboxone, UDS positive for buprenorphine and THC * IV Toradol for pain management * Hold all narcotics DVT Prophylaxis: SQH - Summary of Assessment and Plan Summary of Assessment and Plan: * IV Abx overnight * Culture sensitivities pending * Toradol for pain * Hold narcotics - Time Spent with Patient Total time spent is greater than 50% in coordination of care (as documented) at patient's floor/unit and/or counseling patient: Internal Medicine: Result - Labs CBC & Chem 7: 02/07/19 09:27 02/07/19 09:27 Labs: Short CBC 02/07/19 Range/Units 09:27 WBC 4.0 L (4.3-11.1) K/mcL Hgb 12.3 L (12.9-16.9) g/dL Hct 37.1 L (37.5-50.1) % Plt Count 320 (140-400) K/mcL BMP 02/07/19 09:27 Sodium 141 Potassium 3.9 Chloride 106 Carbon Dioxide 32 H BUN 14 Creatinine 0.83 Glucose 105 Calcium 8.9 Consult Discharge Plan - Plan Referrals: NONE,PCP [Primary Care Provider] - <Jarod Velarde - Last Filed: 02/07/19 14:09> Hospitalist Progress Note - Encounter Date of Encounter: 02/07/19 - Exam Vitals: Temp Pulse Resp BP Pulse Ox 97.6 F 70 16 114/57 98 02/07/19 10:45 02/07/19 10:45 02/07/19 10:45 02/07/19 10:45 02/07/19 10:45 - Assessment and Plan (1) Left leg cellulitis Current Visit: Yes Status: Acute (2) Polysubstance (including opioids) dependence w/o physiol dependence Current Visit: No Status: Chronic (3) Depression Current Visit: No Status: Chronic (4) Tobacco abuse Current Visit: Yes Status: Chronic - Time Spent with Patient Total time spent is greater than 50% in coordination of care (as documented) at patient's floor/unit and/or counseling patient: Internal Medicine: Result - Labs CBC & Chem 7: 02/07/19 09:27 02/07/19 09:27 Labs: Short CBC 02/07/19 Range/Units 09:27 WBC 4.0 L (4.3-11.1) K/mcL Hgb 12.3 L (12.9-16.9) g/dL Hct 37.1 L (37.5-50.1) % Plt Count 320 (140-400) K/mcL BMP 02/07/19 09:27 Sodium 141 Potassium 3.9 Chloride 106 Carbon Dioxide 32 H BUN 14 Creatinine 0.83 Glucose 105 Calcium 8.9 - Attending Attestation I examined this patient and my medical decision-making was reviewed with the Resident Physician on 02/07/19. I agree with the documented findings, disposi tion and treatment plan as described except to the extent set forth below. Mr Salmon is currently admitted for acute cellulitis LLE. He remains moderate to high risk due to potential for worsening clinical status. Mr Salmon is doing OK. Less pain and swelling today. No fever or chills. No CP or SOB. Exam: Alert. Comfortable. NC. Mucus membranes dry. Neck supple. Heart not tachy. No wheeze. Abd soft. Leg slowly improving. Minimal induration around open area on leg which is improving. No rash. Moves all extremities. Cx Blood: Staph species. Repeat pending. Wound cx: Group A strep. Staph species. Plan continue IV abx and await further cx. Further diagnoses and plan as above. <Jarod Velarde - Last Filed: 02/07/19 14:09> (3) Depression Qualifiers: Depression Type: unspecified Qualified Code(s): F32.9 - Major depressive disorder, single episode, unspecified
[2019-02-07] MEDS: BuPROPion XL (24 HR) 150 MG TABLET PO SCH (20:19)
[2019-02-08] MEDS: *HR* Enoxaparin 40 MG/0.4 ML SYRINGE SQ SCH (05:28)
[2019-02-08] MEDS: Piperacillin/Tazobactam 3.375 GM in 0.9 % Sodium Chloride Mini Bag 100 ML IVPB SCH (05:45)
[2019-02-08 07:38] VITALS: BP 124/76
[2019-02-08] MEDS: *HR* Buprenorphine HCl 8 MG TAB.SUBL SL SCH (08:47)
[2019-02-08] MEDS: Nicotine 21 MG PATCH.TD24 TD SCH (08:47)
[2019-02-08] MEDS: hydrOXYzine pamoate 25 MG CAPSULE PO PRN (08:49)
--- NOTE | 2019-02-08 09:02 | Discharge Summary ---
- NOTES TO OUTPATIENT PROVIDER Notes to Outpatient Provider: Pt admitted with cellulitis of LLE. Blood cx with contaminant. Wound improved with treatment. Discharged on PO abx. Orders not resulted at time of discharge: Pending orders 02/05/19 02:25 Culture,Blood [BC] Stat 02/06/19 08:25 Culture,Blood [BC] Routine Date of Encounter: 02/08/19 Time of Encounter: 09:02 - Discharge Diagnosis (1) Left leg cellulitis Priority: Primary Status: Acute (2) Polysubstance (including opioids) dependence w/o physiol dependence Priority: Secondary Status: Chronic (3) Depression Priority: Secondary Status: Chronic Qualifiers: Depression Type: unspecified Qualified Code(s): F32.9 - Major depressive disorder, single episode, unspecified (4) Tobacco abuse Priority: Secondary Status: Chronic Hospital course: Mr. Salmon is a 28 year old male with hx opiate abuse recently diagnosed with cellulitis. Despite abx he worsened and was placed in hospital. Mr Salmon was admitted to med surg. He was started on IV abx. He had slow improvement in his leg. Initial blood cx had 1 of 2 positive for staph. Wound cx with MSSA and group A strep. Ultimately blood cx with staph hominis. Repeat cx negative. Today he is afebrile and feels better. Leg with no erythema and minimal drainage. He will be discharged home on PO abx with outpatient follow up. Discharge discussed with: patient Time spent discussing smoking cessation with patient: 3 to 10 minutes - Time Spent with Patient Total time spent providing and/or coordinating discharge services: 34min - Discharge Medications Prescriptions: New Amoxicillin/Clavulanate [Augmentin] 875 mg PO BIDWM #11 tablet hydrOXYzine pamoate [Vistaril] 25 mg PO TID PRN #30 capsule PRN Reason: Anxiety Continued Bupropion HCl [Wellbutrin Xl] 300 mg PO QAM Ibuprofen [Motrin] 600 mg PO TID PRN PRN Reason: Pain Buspirone HCl [Buspar] 10 mg PO HS Nicotine Patch [Nicoderm] 21 mg TD DAILY Buprenorphine HCl/Naloxone HCl [Buprenorphin-Naloxon 8-2 mg Sl] 2 tab PO DAILY Discontinued Doxycycline Hyclate [Vibramycin] 100 mg PO BID Home Medications: Buprenorphine HCl/Naloxone HCl [Buprenorphin-Naloxon 8-2 mg Sl] 2 tab PO DAILY 02/05/19 [History] Bupropion HCl [Wellbutrin Xl] 300 mg PO QAM 02/05/19 [History] Buspirone HCl [Buspar] 10 mg PO HS 02/05/19 [History] Ibuprofen [Motrin] 600 mg PO TID PRN 02/05/19 [History] Nicotine Patch [Nicoderm] 21 mg TD DAILY 02/05/19 [History] Amoxicillin/Clavulanate [Augmentin] 875 mg PO BIDWM #11 tablet 02/08/19 [Rx] hydrOXYzine pamoate [Vistaril] 25 mg PO TID PRN #30 capsule 02/08/19 [Rx] Allergies/Adverse Reactions: Allergy/AdvReac Type Severity Reaction Status Date / Time Bee Pollen Allergy Anaphylaxis Verified 02/05/19 14:27 tramadol [From Ultram] Allergy Hives Verified 02/05/19 14:27 green peppers Allergy Hives Uncoded 02/05/19 14:27 Date of admission: 02/07/19 14:46 Primary care physician: PCP NONE Consults: 02/05/19 07:03 Consult to Nutrition [CONS] Routine Comment: Consulting Provider: NUTRITION Reason for Dietary Consult: MST Score Discharging clinician: Jarod Velarde Anticipated date of discharge: 02/08/19 - Constitutional Vitals: Temp Pulse Resp BP Pulse Ox 98.2 F 67 14 124/76 98 02/08/19 07:37 02/08/19 07:37 02/08/19 07:37 02/08/19 07:37 02/08/19 07:37 General appearance: Present: A&O X 3, answers questions appropriately Exam: See below - Head Head exam: Present: atraumatic, normocephalic - Eye Eye exam: Present: EOMI, conjuntiva pink - ENT ENT exam: Present: normal exam - Neck Neck exam general surgery: Present: supple - Respiratory Respiratory exam: Present: CTAB - Cardiovascular Cardiovascular exam: Present: RRR - GI/Abdominal GI/Abdominal exam: Present: soft. Absent: tenderness - Extremities Exam Extremities exam: Present: warm. Absent: tenderness - Neurological Exam Neurological exam: Present: alert, oriented X3 - Skin Skin exam: Present: dry, warm Additional comments: Improved erythema of LLE - Patient Status Disposition: Home, Self-Care Condition: Good Functional capacity at discharge: independent ambulation Overall status at discharge: patient is progressing back to baseline - Discharge Instructions Follow Up With: NONE,PCP [Primary Care Provider] - - Diet and Activity Activity: resume usual activities as tolerated Diet: advance to your usual diet
== END 2019-02-08 11:16 | disposition home or self-care (01) | DRG 383 ==
LOC: EMEROOARM 23:50 → 3ANU 23:50 → SUATTDRO 02-05 05:58 → 3ANU 02-05 06:50
PROVIDERS: ADMIT Internal Medicine; ATTEND Internal Medicine

== ENCOUNTER 2019-07-27 14:45 | Inpatient (IN) ==
[2019-07-27 15:16] LABS: Bilirubin,Urine Negative (Negative); Blood,Urine Negative (Negative); Clarity,Urine Clear (Clear); Color,Urine Yellow (Yellow); Glucose,Urine (UA) Normal (Normal); Ketones,Urine Negative (Negative); Leukocyte Esterase,Urine Negative (Negative); Nitrite,Urine Negative (Negative); PH,Urine 7.5 pH Units (5.0-8.0); Protein,Urine Negative (Neg-Trace); Specific Gravity,Urine 1.021 (1.010-1.025); Urobilinogen,Urine Normal (Normal)
[2019-07-27 15:25] LABS: Basophils % 0.4 %; Eosinophils # 0.1 K/mcL (0.0-0.6); Eosinophils % 2.5 %; Hematocrit 38.3 % (37.5-50.1); Hemoglobin 12.5 g/dL (12.9-16.9); Immature Granulocytes % 0.2 % (0-4); Lymphocytes # 1.1 K/mcL (0.6-4.6); Lymphocytes % 20.4 %; Mean Corpuscular HGB Conc 32.6 g/dL (31.6-35.5); Mean Platelet Volume 10.4 fL (9.4-12.4); Monocytes # 0.5 K/mcL (0.0-1.3); Monocytes % 10.2 %; Neutrophils # 3.4 K/mcL (1.6-8.9); Platelet Count 273 K/mcL (140-400); Red Blood Count 4.03 M/mcL (4.19-5.50); Red Cell Distribution Width 12.4 % (11.5-14.5); Segmented Neutrophils % 66.3 %; White Blood Count 5.2 K/mcL (4.3-11.1)
[2019-07-27 15:30] LABS: Amphetamine Screen,Urine Negative ng/mL (Cutoff=1000); Barbiturate Screen,Urine Negative ng/mL (Cutoff=200); Benzodiazepines Screen,Urine Negative ng/mL (Cutoff=200); Cannabinoid Screen,Urine Positive ng/mL (Cutoff = 50); Cocaine Screen,Urine Positive ng/mL (Cutoff= 300); Opiate Screen,Urine Negative ng/mL (Cutoff=300); Phencyclidine Screen,Urine Negative ng/mL (Cutoff=25)
[2019-07-27 15:45] LABS: Acetaminophen < 10 mcg/mL (10-20); BUN/Creatinine Ratio 17 (6-26); Blood Urea Nitrogen 12 mg/dL (6-20); Calcium 9.6 mg/dL (8.6-10.3); Carbon Dioxide 29 mEq/L (23-29); Chloride 103 mEq/L (98-107); Ethanol < 10 mg/dL (Less than 10); Glucose 110 mg/dL (70-105); Osmolality,Calculated 286 (280-300); Potassium 3.8 mEq/L (3.5-5.1); Salicylate < 2.5 mg/dL (15.0-30.0); Sodium 138 mEq/L (136-145); eGFR For African Americans > 60 (> 60); eGFR For Non-African Americans > 60 (> 60)
[2019-07-27] MEDS ORDERED: hydrOXYzine pamoate 25 MG CAPSULE PO PRN (17:44)
[2019-07-27] MEDS ORDERED: haloperidoL 5 MG TABLET PO PRN (17:44)
[2019-07-27] MEDS ORDERED: Haloperidol Lactate 5 MG/ML VIAL IM PRN (17:44)
[2019-07-27] MEDS ORDERED: *HR* LORazepam 1 MG TABLET PO PRN (17:44)
[2019-07-27] MEDS ORDERED: traZODone 50 MG TABLET PO PRN (17:44)
[2019-07-27] MEDS ORDERED: Mag Hydrox/Al Hydrox/Simeth 30 ML UDC PO PRN (17:44)
[2019-07-27] MEDS ORDERED: MOM Conc 10 ML UD.LIQ PO PRN (17:44)
[2019-07-27] MEDS ORDERED: *HR* LORazepam 2 MG/ML VIAL IM PRN (17:44)
[2019-07-27] MEDS ORDERED: Benzocaine 20% 12 APPL GEL..GRAM. TP PRN (18:46)
[2019-07-27] MEDS ORDERED: Ibuprofen 400 MG TABLET PO PRN (19:08)
[2019-07-27] MEDS ORDERED: Nicotine 2 MG GUM BC PRN (19:14)
[2019-07-27] MEDS ORDERED: Nicotine 2 MG GUM BC SCH (20:00)
[2019-07-28] MEDS: Acetaminophen 325 MG TABLET PO PRN (16:27)
[2019-07-28] MEDS: cloNIDine HCL 0.1 MG TABLET PO PRN (16:29)
[2019-07-28] MEDS ORDERED: Mirtazapine 15 MG TABLET PO SCH (21:00)
[2019-07-29] MEDS: cloNIDine HCL 0.1 MG TABLET PO PRN (08:57)
[2019-07-29] MEDS: Acetaminophen 325 MG TABLET PO PRN (08:58)
[2019-07-29] MEDS ORDERED: OLANZapine 5 MG TAB.RAPDIS PO SCH (09:00)
[2019-07-29] MEDS ORDERED: BuPROPion XL (24 HR) 150 MG TABLET PO SCH (09:00)
[2019-07-29 09:23] VITALS: BP 150/84
== END 2019-07-29 12:50 | disposition home or self-care (01) | DRG 754 ==
LOC: EMEROOARM 14:45 → 1ANU 17:43
PROVIDERS: ADMIT Psychiatry & Neurology Psychiatry; ATTEND Psychiatry & Neurology Psychiatry

== ENCOUNTER 2021-06-09 03:32 | Observation (INO) ==
[2021-06-09] MEDS ORDERED: Ketamine *HR* 500 MG/10 ML MDV IM ONE (03:45)
[2021-06-09] MEDS ORDERED: Tdap (Boostrix) Vaccine 0.5 ML SYRINGE IM ONE (03:54)
[2021-06-09] MEDS ORDERED: EPINEPHrine 1 MG/ML VIAL IM ONE (03:59)
[2021-06-09 04:05] VITALS: TEMP 98.3
[2021-06-09] MEDS ORDERED: Ketamine *HR* 500 MG/10 ML MDV ONE (04:12)
[2021-06-09 04:18] LABS: Basophils % 0.3 %; Eosinophils # 0.1 K/mcL (0.0-0.6); Eosinophils % 0.6 %; Hematocrit 43.3 % (37.5-50.1); Hemoglobin 14.3 g/dL (12.9-16.9); Immature Granulocytes % 0.5 % (0-4); Lymphocytes # 3.5 K/mcL (0.6-4.6); Lymphocytes % 24.6 %; Mean Corpuscular Hemoglobin 32.5 pg (28.0-33.3); Mean Corpuscular Volume 98.4 fL (83.0-100.0); Mean Platelet Volume 10.9 fL (9.4-12.4); Monocytes # 0.4 K/mcL (0.0-1.3); Neutrophils # 10.1 K/mcL (1.6-8.9); Platelet Count 256 K/mcL (140-400); Red Cell Distribution Width 12.4 % (11.5-14.5); White Blood Count 14.2 K/mcL (4.3-11.1)
[2021-06-09] MEDS: Famotidine 20 MG/2 ML VIAL IVP ONE ×2 (04:18→04:34)
[2021-06-09] MEDS ORDERED: *HR* LORazepam 2 MG/ML VIAL IVP ONE ×2 (04:47→06:31)
[2021-06-09 04:50] LABS: BUN/Creatinine Ratio 10 (6-26); Blood Urea Nitrogen 12 mg/dL (6-20); Calcium 9.7 mg/dL (8.6-10.3); Carbon Dioxide 22 mEq/L (23-29); Chloride 101 mEq/L (98-107); Ethanol 99 mg/dL (Less than 10); Glucose 197 mg/dL (70-105); Osmolality,Calculated 289 (280-300); Potassium 3.3 mEq/L (3.5-5.1); Sodium 137 mEq/L (136-145); Troponin I < 0.03 ng/mL (< 0.04); eGFR For African Americans > 60 (> 60); eGFR For Non-African Americans > 60 (> 60)
[2021-06-09 05:32] LABS: Amphetamine Screen,Urine Negative ng/mL (Cutoff=1000); Barbiturate Screen,Urine Negative ng/mL (Cutoff=200); Benzodiazepines Screen,Urine Negative ng/mL (Cutoff=200); Cannabinoid Screen,Urine Positive ng/mL (Cutoff = 50); Cocaine Screen,Urine Negative ng/mL (Cutoff= 300); Opiate Screen,Urine Negative ng/mL (Cutoff=300); Phencyclidine Screen,Urine Negative ng/mL (Cutoff=25)
[2021-06-09] MEDS ORDERED: *HR* LORazepam 2 MG/ML VIAL ONE (06:32)
[2021-06-09 06:45] VITALS: O2SAT 98
[2021-06-09 07:02] LABS: Influenza A PCR Negative (Negative); Influenza B PCR Negative (Negative); Resp. Syncytial Virus PCR Negative (Negative)
[2021-06-09 07:15] LABS: SARS-CoV-2 by PCR (In House) Negative (Negative)
[2021-06-09] MEDS ORDERED: Ziprasidone 20 MG, Closed System Device IM Kit 1 EACH in Water for inj. (sterile) 1 ML IM ONE (07:41)
[2021-06-09] MEDS ORDERED: Ziprasidone 20 MG/VIAL VIAL IM ONE (07:54)
[2021-06-09] MEDS ORDERED: Water for inj. (sterile) 10 ML ONE (07:54)
[2021-06-09] MEDS ORDERED: *HR* LORazepam 2 MG/ML VIAL IVP PRN (08:00)
[2021-06-09] MEDS ORDERED: Naloxone 0.4 MG/ML INJ IVP PRN (09:05)
[2021-06-09] MEDS ORDERED: 0.9 % Sodium Chloride 1,000 ML IVC ONE (09:24)
[2021-06-09 11:07] VITALS: BP 136/89; PULSE 72
[2021-06-09] MEDS ORDERED: Thiamine (B-1) 100 MG in 0.9 % Sodium Chloride 50 ML IVPB SCH (11:30)
[2021-06-09] MEDS ORDERED: Haloperidol Lactate 5 MG/ML VIAL IM PRN (15:15)
== END 2021-06-09 18:31 | disposition home or self-care (01) ==
LOC: 3BNU 03:32 → EMEROOARM 03:32 → 3BNU 08:59
PROVIDERS: ADMIT Student in an Organized Health Care Education/Training Program; ATTEND Student in an Organized Health Care Education/Training Program